=== PATIENT | female | born 1985 | race African-American/Black ===

== ENCOUNTER 2024-11-01 12:13 | Emergency (ER) | payer MEDICAID ==
[~2024-11-01] VITALS: Ht 172.7 cm; Wt 82.0 kg
[2024-11-01 12:16] VITALS: O2SAT 96
[2024-11-01] MEDS ORDERED: IBUP-2029 MT (14:35)
[2024-11-01] MEDS: KETOROLAC 30MG/ML VIAL IM ONE (14:42)
[2024-11-01] MEDS: METHOCARBAMOL 500MG TABLET PO ONE (14:43)
[2024-11-01 15:20] VITALS: BP 144/82; PULSE 70; RESP 16; TEMP 36.6; O2SAT 96
== END 2024-11-01 15:22 | disposition home or self-care (01) ==
LOC: ER 12:13
DX: S43.402A Unspecified sprain of left shoulder joint, initial encounter (principal); J45.909 Unspecified asthma, uncomplicated; X58.XXXA Exposure to other specified factors, initial encounter; Y93.89 Activity, other specified; Y92.89 Other specified places as the place of occurrence of the external cause; Y99.8 Other external cause status
CPT/HCPCS: 99283; 73030; 96372; J1885